=== PATIENT | male | born 1985 | race American Indian/Alaskan Native ===

== ENCOUNTER 2019-07-04 08:17 | Emergency (ER) | payer SELFPAY ==
[2019-07-04 08:31] VITALS: BP 129/75
--- NOTE | 2019-07-04 10:03 | Emergency Department Report ---
<LUANN WEIR - Last Filed: 07/04/19 11:09> ED Male HPI - General Chief complaint: Urogenital-Male Stated complaint: TESTICLE PAIN Source: patient Mode of arrival: Ambulatory Limitations: No Limitations - History of Present Illness Initial comments: 33 yo male c/o left testicular pain and swelling this am. Reports unprotected sex 1 week ago and white penile discharge. Denies fever chills, no vomiting or diarrhea. MD Complaint: testicle pain, testicle swelling, penile discharge -: Sudden Location: left testicle Radiation: none Severity: moderate Quality: sharp Consistency: constant Improves with: none Worsens with: none discharge. denies: rash, urinary retention, fever, nausea/vomiting - Related Data Previous Rx's Medication Instructions Recorded Last Taken Type Chlorhexidine Gluconate [Hibiclens] 10 ml TP BID #240 liquid 02/23/19 Unknown Rx Mupirocin [Bactroban 2%] 15 applic TP TID #15 gm 02/23/19 Unknown Rx Sulfamethoxazole/Trimethoprim 2 each PO BID #40 tablet 02/23/19 Unknown Rx [Bactrim DS TAB] cephALEXin [Keflex] 500 mg PO Q6HR #40 capsule 02/23/19 Unknown Rx Allergies Allergy/AdvReac Type Severity Reaction Status Date / Time No Known Allergies Allergy Verified 02/22/19 23:31 ED Review of Systems Comment: All other systems reviewed and negative Constitutional: no symptoms reported Respiratory: no symptoms reported Endocrine: no symptoms reported Gastrointestinal: denies: abdominal pain, nausea, vomiting, diarrhea Genitourinary: discharge, testicular pain, testicular mass. denies: dysuria ED Past Medical Hx - Past Medical History Previous Medical History?: No - Surgical History Past Surgical History?: No - Social History Smoking Status: Current Every Day Smoker Substance Use Type: Marijuana - Medications Home Medications: Home Medications Medication Instructions Recorded Confirmed Last Taken Type Chlorhexidine Gluconate [Hibiclens] 10 ml TP BID #240 liquid 02/23/19 Unknown Rx Mupirocin [Bactroban 2%] 15 applic TP TID #15 gm 02/23/19 Unknown Rx Sulfamethoxazole/Trimethoprim 2 each PO BID #40 tablet 02/23/19 Unknown Rx [Bactrim DS TAB] cephALEXin [Keflex] 500 mg PO Q6HR #40 capsule 02/23/19 Unknown Rx ED Physical Exam - General Limitations: No Limitations General appearance: alert, in no apparent distress - Head Head exam: Present: atraumatic - Eye Eye exam: Present: normal appearance - ENT ENT exam: Present: normal exam - Neck Neck exam: Present: normal inspection - Respiratory Respiratory exam: Present: normal lung sounds bilaterally - Cardiovascular Cardiovascular Exam: Present: regular rate, normal heart sounds - GI/Abdominal GI/Abdominal exam: Present: soft, normal bowel sounds. Absent: distended, rebound, rigid - exam: Present: testicular tenderness (left testicular swelling and palpable mass), scrotal swelling (mild scrotal swelling ), other. Absent: urethral discharge External exam: Present: normal external exam. Absent: lesions, lacerations, ecchymosis, bleeding - Extremities Exam Extremities exam: Present: normal inspection - Back Exam Back exam: Present: normal inspection - Neurological Exam Neurological exam: Present: alert, oriented X3 - Psychiatric Psychiatric exam: Present: normal affect - Skin Skin exam: Present: warm, dry, intact, normal color ED Medical Decision Making - Radiology Data Radiology results: report reviewed US FINDINGS -- LEFT TESTIS: Size: 4.9 x 2.8 x 3.3 cm. Echotexture: Normal. Color Doppler Flow: Normal. Lesions: None. EPIDIDYMIS: Size: Normal. Echotexture: Normal. Color Doppler Flow: Increased Lesions: 1.5 cm epididymal cyst Hydrocele: Small left hydrocele Varicocele: None. Additional Findings: None. IMPRESSION: 1. 1.5 cm left epididymal head cyst 2. Small left hydrocele. 3. Possible left epididymitis. No sonographic evidence for orchitis or torsion - Medical Decision Making 33 yo male with hx of unprotected sex 1 week ago c/o left testicular pain US IMPRESSION: 1. 1.5 cm left epididymal head cyst 2. Small left hydrocele. 3. Possible left epididymitis. No sonographic evidence for orchitis or torsion Findings discussed with patient Given Rocephin 250 mg IM Azithromycin 1 gm Follow up with PCP. Critical Care Time: No ED Disposition Clinical Impression: Epididymitis Disposition: DC-01 TO HOME OR SELFCARE Is pt being admited?: No Does the pt Need Aspirin: No Condition: Stable Instructions: Epididymitis (ED) Additional Instructions: USE CONDOMS ALL THE TIME EVERY TIME. STOP SMOKING CIGARETTES. Follow up with your doctor or Dr. Arechiga in 3-5 days. Referrals: PRIMARY CARE,MD [Primary Care Provider] - 3-5 Days YAMIL ARECHIGA MD [Staff Physician] - 3-5 Days Forms: STI Treatment and Prevention Time of Disposition: 10:51 <JUSTYNA SORENSEN P - Last Filed: 07/04/19 13:24> ED Review of Systems ROS: Stated complaint: TESTICLE PAIN Other details as noted in HPI ED Course Vital Signs 07/04/19 08:29 Temperature 98.5 F Pulse Rate 92 H Respiratory 18 Rate Blood Pressure 129/75 O2 Sat by Pulse 100 Oximetry ED Medical Decision Making - Medical Decision Making Attestation: Available for consultation Critical care attestation.: If time is entered above; I have spent that time in minutes in the direct care of this critically ill patient, excluding procedure time. ED Disposition Is pt being admited?: No
--- NOTE | 2019-07-04 10:39 | Ultrasound Report ---
ULTRASOUND SCROTUM INDICATION: Lt. testicular swelling. COMPARISON None available. FINDINGS -- RIGHT TESTIS: Size: 5.2 x 2.6 x 3.2 cm. Echotexture: Normal. Color Doppler Flow: Normal. Lesions: None. EPIDIDYMIS: Size: Normal. Echotexture: Normal. Color Doppler Flow: Normal. Lesions: None. Hydrocele: None. Varicocele: None. Additional Findings: None. FINDINGS -- LEFT TESTIS: Size: 4.9 x 2.8 x 3.3 cm. Echotexture: Normal. Color Doppler Flow: Normal. Lesions: None. EPIDIDYMIS: Size: Normal. Echotexture: Normal. Color Doppler Flow: Increased Lesions: 1.5 cm epid idymal cyst Hydrocele: Small left hydrocele Varicocele: None. Additional Findings: None. IMPRESSION: 1. 1.5 cm left epididymal head cyst 2. Small left hydrocele. 3. Possible left epididymitis. No sonographic evidence for orchitis or torsion Signer Name: Kirill May MD Signed: 07/04/2019 10:34 AM Workstation Name: [id number]
[2019-07-04] MEDS ORDERED: AZITHROMYCIN 1 GM ORAL PWDR PACKET PO ONE (10:49)
[2019-07-04] MEDS ORDERED: LIDOCAINE-MPF (1%) 10 MG/1 ML VIAL 5 ML INFILTRATI ONE (10:54)
[2019-07-04 10:59] LABS: Bilirubin,Urine NEG (Negative); Blood,Urine NEG (Negative); Color,Urine Yellow (Yellow); Mucus,Urine FEW /HPF; Protein,Urine <15 mg/dL mg/dL (Negative)
== END 2019-07-04 11:16 | disposition home or self-care (01) ==
LOC: ED 08:17
DX: N45.1 Epididymitis (principal); F17.200 Nicotine dependence, unspecified, uncomplicated; F12.10 Cannabis abuse, uncomplicated; Z79.899 Other long term (current) drug therapy
CPT/HCPCS: 81001; 93975; 96372; 99284; J0696

== ENCOUNTER 2019-11-25 15:34 | Inpatient (IN) | payer OTHER, SELFPAY ==
[2019-11-25] MEDS ORDERED: SODIUM CHLORIDE 0.9% 500 ML 500 ML IV ONE (16:01)
[2019-11-25] MEDS ORDERED: ACETAMINOPHEN 325 MG TAB ONE ×2 (16:17→21:16)
[2019-11-25] MEDS ORDERED: ACETAMINOPHEN 325 MG TAB PO ONE (16:19)
[2019-11-25 16:42] LABS: Basophils % (Auto) 0.2 % (0.0-1.8); Hematocrit 46.2 % (35.5-45.6); Hemoglobin 15.7 gm/dl (11.8-15.2); Lymphocytes # (Auto) 0.7 K/mm3 (1.2-5.4); Lymphocytes % (Auto) 8.5 % (13.4-35.0); Mean Corpuscular HGB Conc 34 % (32-34); Mean Corpuscular Volume 96 fl (84-94); Monocytes # (Auto) 0.3 K/mm3 (0.0-0.8); Monocytes % (Auto) 3.8 % (0.0-7.3); Platelet Count 134 K/mm3 (140-440); Red Blood Count 4.82 M/mm3 (3.65-5.03)
[2019-11-25 16:47] LABS: INR 0.95 (0.87-1.13)
[2019-11-25 16:59] LABS: Alanine Aminotransferase 71 units/L (7-56); Albumin 4.3 g/dL (3.9-5); BUN/Creatinine Ratio 11; Blood Urea Nitrogen 17 mg/dL (9-20); Calcium 9.3 mg/dL (8.4-10.2); Hemolysis Index 8
[2019-11-25] MEDS ORDERED: SODIUM CHLORIDE 0.9% 1000 ML 1,000 ML IV ONE ×2 (17:10→17:11)
[2019-11-25] MEDS ORDERED: AZITHROMYCIN 500 MG in SODIUM CHLORIDE 0.9% 250ML 250 ML IV ONE (17:23)
[2019-11-25] MEDS ORDERED: cefTRIAXone/NS 1 GM/50 ML 1 GM/50 ML BAG IV ONE (17:23)
[2019-11-25] MEDS ORDERED: ONDANSETRON 4 MG/2 ML INJ IV ONE (17:27)
[2019-11-25 18:10] LABS: C-Reactive Protein 22.9 mg/dL (0.00-1.30)
[2019-11-25] MEDS ORDERED: ONDANSETRON 4 MG/2 ML INJ IV PRN (18:28)
[2019-11-25] MEDS ORDERED: ENOXAPARIN 40 MG/0.4 ML INJ SUB-Q SCH (19:00)
[2019-11-25] MEDS: AZITHROMYCIN 500 MG in SODIUM CHLORIDE 0.9% 250ML 250 ML IV SCH (19:00)
[2019-11-25] MEDS: cefTRIAXone/NS 2 GM/100 ML 2 GM/100 ML BAG IV SCH (19:00)
[2019-11-25 20:02] LABS: Bacteria,Urine 1+ /HPF (Negative); Bilirubin,Urine NEG (Negative); Blood,Urine LG (Negative); Color,Urine Yellow (Yellow); Mucus,Urine FEW /HPF; Urobilinogen,Urine < 2.0 mg/dL (<2.0)
[2019-11-25] MEDS: ACETAMINOPHEN 325 MG TAB PO PRN (21:17)
[2019-11-26] MEDS ORDERED: HYDROmorphone 1 MG/1 ML INJ ONE ×2 (01:46→08:53)
[2019-11-26] MEDS: HYDROmorphone 1 MG/1 ML INJ IV PRN ×2 (01:59→09:01)
[2019-11-26] MEDS ORDERED: SODIUM CHLORIDE 0.9% 1000 ML 1,000 ML ONE (03:34)
[2019-11-26] MEDS ORDERED: ACETAMINOPHEN 325 MG TAB ONE ×2 (03:34→08:57)
[2019-11-26] MEDS: ACETAMINOPHEN 325 MG TAB PO PRN ×4 (04:14→22:26)
[2019-11-26] MEDS: SODIUM CHLORIDE 0.9% 1000 ML 1,000 ML IV SCH ×3 (04:16→22:27)
[2019-11-26 05:28] LABS: Basophils % (Auto) 0.5 % (0.0-1.8); Hematocrit 38.8 % (35.5-45.6); Hemoglobin 13.5 gm/dl (11.8-15.2); Lymphocytes # (Auto) 0.9 K/mm3 (1.2-5.4); Lymphocytes % (Auto) 16.4 % (13.4-35.0); Mean Corpuscular HGB Conc 35 % (32-34); Mean Corpuscular Volume 95 fl (84-94); Monocytes # (Auto) 0.2 K/mm3 (0.0-0.8); Monocytes % (Auto) 3.6 % (0.0-7.3); Red Blood Count 4.07 M/mm3 (3.65-5.03)
[2019-11-26 05:33] LABS: Platelet Count 101 K/mm3 (140-440)
[2019-11-26 05:48] LABS: Alanine Aminotransferase 72 units/L (7-56); Albumin 3.3 g/dL (3.9-5); BUN/Creatinine Ratio 11; Blood Urea Nitrogen 15 mg/dL (9-20); Calcium 8.2 mg/dL (8.4-10.2); Hemolysis Index 3
[2019-11-26] MEDS ORDERED: ENOXAPARIN 40 MG/0.4 ML INJ SUB-Q SCH (08:00)
[2019-11-26] MEDS: ENOXAPARIN 80 MG/0.8 ML INJ SUB-Q SCH ×2 (10:12→22:26)
[2019-11-26] MEDS: cefTRIAXone/NS 2 GM/100 ML 2 GM/100 ML BAG IV SCH (10:12)
[2019-11-26] MEDS: AZITHROMYCIN 500 MG in SODIUM CHLORIDE 0.9% 250ML 250 ML IV SCH (11:56)
[2019-11-26 13:07] LABS: Hepatitis B Surface Antigen Non-Reactive (Negative); Hepatitis C Virus Antibody Non-Reactive (NonReactive)
[2019-11-26] MEDS: oxyCODONE /ACETAMINOPHEN 5-325MG TAB PO PRN (14:58)
[2019-11-27] MEDS: ACETAMINOPHEN 325 MG TAB PO PRN ×2 (04:15→20:59)
[2019-11-27] MEDS: oxyCODONE /ACETAMINOPHEN 5-325MG TAB PO PRN ×3 (04:16→18:53)
[2019-11-27] MEDS: AZITHROMYCIN 250 MG TAB PO SCH (10:23)
[2019-11-27] MEDS: cefTRIAXone/NS 2 GM/100 ML 2 GM/100 ML BAG IV SCH (10:23)
[2019-11-27] MEDS: ENOXAPARIN 80 MG/0.8 ML INJ SUB-Q SCH ×2 (10:23→21:01)
[2019-11-27 10:46] LABS: Hematocrit 41.4 % (35.5-45.6); Hemoglobin 14.2 gm/dl (11.8-15.2); Mean Corpuscular HGB Conc 34 % (32-34); Mean Corpuscular Volume 96 fl (84-94); Platelet Count 124 K/mm3 (140-440); Red Blood Count 4.31 M/mm3 (3.65-5.03); Red Cell Distribution Width 14.4 % (13.2-15.2)
[2019-11-27 11:09] LABS: Alanine Aminotransferase 69 units/L (7-56); Albumin 2.8 g/dL (3.9-5); BUN/Creatinine Ratio 13; Blood Urea Nitrogen 15 mg/dL (9-20); Calcium 8.9 mg/dL (8.4-10.2); Hemolysis Index 3
[2019-11-27 12:04] LABS: Band Neutrophils # (Manual) 1.1 K/mm3; Basophils % (Manual) 0 % (0.0-1.8); Dohle Bodies Few; Eosinophils % (Manual) 0 % (0.0-4.3); Giant Platelets Rare; Platelet Estimate Consistent w Auto; RBC Morphology Normal; Total Cells Counted 100
[2019-11-27] MEDS ORDERED: ENOXAPARIN 80 MG/0.8 ML INJ SUB-Q SCH (22:00)
[2019-11-27] MEDS ORDERED: ENOXAPARIN 100 MG/1 ML INJ SUB-Q SCH (22:00)
[2019-11-28] MEDS: SODIUM CHLORIDE 0.9% 1000 ML 1,000 ML IV SCH (01:09)
[2019-11-28] MEDS: ACETAMINOPHEN 325 MG TAB PO PRN ×3 (04:25→21:18)
[2019-11-28] MEDS: oxyCODONE /ACETAMINOPHEN 5-325MG TAB PO PRN ×2 (05:05→18:59)
[2019-11-28 06:11] LABS: C-Reactive Protein 32.2 mg/dL (0.00-1.30)
[2019-11-28] MEDS: AZITHROMYCIN 250 MG TAB PO SCH (10:03)
[2019-11-28] MEDS: ENOXAPARIN 80 MG/0.8 ML INJ SUB-Q SCH ×2 (10:03→21:18)
[2019-11-28] MEDS: cefTRIAXone/NS 2 GM/100 ML 2 GM/100 ML BAG IV SCH (10:03)
[2019-11-29] MEDS: oxyCODONE /ACETAMINOPHEN 5-325MG TAB PO PRN ×3 (04:55→18:16)
[2019-11-29] MEDS: SODIUM CHLORIDE 0.9% 1000 ML 1,000 ML IV SCH (05:00)
[2019-11-29] MEDS: cefTRIAXone/NS 2 GM/100 ML 2 GM/100 ML BAG IV SCH (11:45)
[2019-11-29] MEDS: ENOXAPARIN 80 MG/0.8 ML INJ SUB-Q SCH ×2 (11:45→21:57)
[2019-11-29] MEDS: AZITHROMYCIN 250 MG TAB PO SCH (11:45)
[2019-11-29] MEDS: ACETAMINOPHEN 325 MG TAB PO PRN (21:57)
[2019-11-30] MEDS: SODIUM CHLORIDE 0.9% 1000 ML 1,000 ML IV SCH ×2 (00:17→14:30)
[2019-11-30] MEDS: ACETAMINOPHEN 325 MG TAB PO PRN (05:47)
[2019-11-30 06:09] LABS: Alanine Aminotransferase 39 units/L (7-56); Albumin 2.6 g/dL (3.9-5); BUN/Creatinine Ratio 14; Blood Urea Nitrogen 15 mg/dL (9-20); Calcium 8.1 mg/dL (8.4-10.2); Hemolysis Index 2
[2019-11-30] MEDS: ENOXAPARIN 80 MG/0.8 ML INJ SUB-Q SCH ×2 (09:32→21:50)
[2019-11-30] MEDS: AZITHROMYCIN 250 MG TAB PO SCH (09:33)
[2019-11-30] MEDS: cefTRIAXone/NS 2 GM/100 ML 2 GM/100 ML BAG IV SCH (09:35)
[2019-11-30] MEDS: oxyCODONE /ACETAMINOPHEN 5-325MG TAB PO PRN (19:08)
[2019-12-01] MEDS: oxyCODONE /ACETAMINOPHEN 5-325MG TAB PO PRN ×2 (00:21→13:01)
[2019-12-01] MEDS: SODIUM CHLORIDE 0.9% 1000 ML 1,000 ML IV SCH (02:51)
[2019-12-01] MEDS ORDERED: VANCOMYCIN PHARMACY TO DOSE IV SCH (06:00)
[2019-12-01] MEDS ORDERED: VANCOMYCIN 1,500 MG in SODIUM CHLORIDE 0.9% 500 ML 500 ML IV ONE (06:30)
[2019-12-01] MEDS: AZITHROMYCIN 250 MG TAB PO SCH (09:05)
[2019-12-01] MEDS: cefTRIAXone/NS 2 GM/100 ML 2 GM/100 ML BAG IV SCH (09:05)
[2019-12-01] MEDS: ENOXAPARIN 80 MG/0.8 ML INJ SUB-Q SCH (09:05)
[2019-12-01 17:31] VITALS: BP 157/74
[2019-12-01] MEDS ORDERED: VANCOMYCIN/NS 1 GM/250 ML 1 GM/250 ML BAG IV SCH (19:00)
[2019-12-01] MEDS ORDERED: VANCOMYCIN 1,250 MG in SODIUM CHLORIDE 0.9% 250ML 250 ML IV SCH (20:00)
== END 2019-12-01 18:14 | disposition home or self-care (01) | DRG 871 ==
LOC: ED 15:34 → IMCU 18:28 → 3A 11-29 18:40
PROVIDERS: ADMIT Internal Medicine; ATTEND Internal Medicine
DX: A41.9 Sepsis, unspecified organism (principal); J18.9 Pneumonia, unspecified organism; N17.0 Acute kidney failure with tubular necrosis; E87.1 Hypo-osmolality and hyponatremia; R74.0 Nonspecific elevation of levels of transaminase and lactic acid dehydrogenase [LDH]; F17.200 Nicotine dependence, unspecified, uncomplicated; Z82.49 Family history of ischemic heart disease and other diseases of the circulatory system; Z03.818 Encounter for observation for suspected exposure to other biological agents ruled out
CPT/HCPCS: 36415; 71046; 71275; 80053; 80074; 81001; 82140; 82728; 82805; 82947; 83615; 83735; 84145; 85007; 85025; 85379; 85610; 86140; 86689; 87040; 87070; 87086; 87205; 87449; 93005; 93970; G0378; J0456; J0696; J1170; J1650; J2405; J3370; J7030; J7040; J7050; Q9967; U0003-CS